=== PATIENT | female | born 1990 | race Caucasian/White ===

== ENCOUNTER 2021-08-25 14:57 | Outpatient (REF) | payer MEDICAID, OTHER, SELFPAY ==
--- NOTE | ~2021-08-25 | XR_ITS ---
EXAMINATION: XR HAND, LEFT CLINICAL INFORMATION: Pain left hand. COMPARISON: None TECHNIQUE: PA, lateral, and oblique views of the left hand. FINDINGS: Bony mineralization is normal. There is no acute or healing fracture, dislocation, or destructive process. The ulnar variance is neutral. There is no focal joint narrowing or erosive changes. XR/XR hand LT min 3V IMPRESSION: Normal left hand.
== END 2021-08-25 14:58 | disposition home or self-care (01) ==
LOC: HO.XRAY 14:57
PROVIDERS: Visit Provider Pediatrics
DX: M79.642 Pain in left hand (principal); M79.641 Pain in right hand
CPT/HCPCS: 73130

== ENCOUNTER 2024-11-12 11:13 | Outpatient (REF) | payer MEDICAID, OTHER, SELFPAY ==
--- OUTSIDE RECORDS SUMMARY | 2024-11-12 12:41 | XMS_ITS | Encounter Summary ---
Author Organization [employer] Address [address] [place] [address] [address] [address] Care Team Providers Care Warehouse Worker 2Nd Shift Name Role Phone Nagi Coughlin MD Primary Care Prov ider Encounter Details Date Type Department Care Team (Latest Contact Info) Description 04/07/2019 Abstract [facility] CONVERSION[facility] Dental, Provider, DDS Social History Tobacco Use Types Packs/Day Years Used Date Smoking Tobacco: Never Assessed Comments Unknown Sex and Gender Information Value Date Recorded Sex Assigned at Female 05/07/2022 10:35 AM EDT Legal Sex Female 10:35 AM EDT Gender Identity Female 05/07/2022 10:35 AM EDT Sexual Orientation Straight 05/07/2022 10 :35 AM EDT documented as of this encounter Plan of Treatment Not on file documented as of this encounter Visit Diagnoses Not on filedocumented in this encounter Care Teams Warehouse Worker 2Nd Shift Relationship Specialty Start Date End Date Nagi Coughlin MD [address] [place] [address] PCP - General Internal Medicine 10/15/19 documented as of this encounter
--- OUTSIDE RECORDS SUMMARY | 2024-11-12 12:41 | XMS_ITS | Encounter Summary ---
Author Organization [employer] Address [address] [place] [address] [address], [place] [address] Care Team Providers Care Shipfitter Helper Name Role Phone Ngai Coughlin MD Primary Care Prov ider Encounter Details Date Type Department Care Team (Latest Contact Info) Description 05/20/2020 Abstract [facility] CONVERSION[facility] Dental, Provider, DDS Social [...] on filedocumented in this encounter Care Teams Shipfitter Helper Relationship Specialty Start Date End Date Nagi Coughlin MD [address] [place] [address] PCP - General Internal Medicine 10/15/19 documented as of this encounter
--- OUTSIDE RECORDS SUMMARY | 2024-11-12 12:41 | XMS_ITS | Encounter Summary ---
Author Organization [employer] [facility] Address [address] [place] [address] [address] [address] Care Team Providers Care Carpet Sewing Machine Operator Name Role Phone Nagi Coughlin MD Primary Care Prov ider Encounter Details Date Type Department Care Team (Latest Contact Info) Description 10/20/2020 Abstract [facility] CONVERSIONS Dental, Provider, DDS Social [...] on filedocumented in this encounter Care Teams Carpet Sewing Machine Operator Relationship Specialty Start Date End Date Nagi Coughlin MD [address] [place] [address] PCP - General Internal Medicine 10/15/19 documented as of this encounter
--- OUTSIDE RECORDS SUMMARY | 2024-11-12 12:41 | XMS_ITS | Clinical Summary ---
Author Organization [employer] Address [address] [facility] [address] [place] [address] Care Team Providers Care Operational Test Mechanic Name Role Phone Nagi Coughlin MD Primary Care Prov ider Allergies No known active allergies Medications ibuprofen 800 MG tablet Take 1 tablet by mouth every 8 (eight) hours. 02/17/2019 Active Active Problems No known active problems Encounters Date Type Department Care Team Description 11/06/2024 Orders Only [facility] [address] [place] [address] Nagi Coughlin MD Encounter for medical examination to establish care (Primary Dx) 11/05/2024 Travel 10/07/2024 Telephone [facility] [address] [place], [place] [id number] Ngai Coughlin MD 10/07/2024 Travel from Last 3 Months Social History Tobacco Use Types Packs/Day Years Used Date Smoking Tobacco: Never Passive Smoke Exposure: Never Smokeless Tobacco: Never Tobacco Cessation:Counseling Given: Not Answered Alcohol Use Standard Drinks/Week Comments Never 0 (1 standard drink = 0.6 oz pur e alcohol) Comments Unknown Sex and Gender Information Value Date Recorded Sex Assigned at Female 05/07/2022 10:35 AM EDT Legal Sex Female 10:35 AM EDT Gender Identity Female 05/07/2022 10:35 AM EDT Sexual Orientation Straight 05/07/2022 10 :35 AM EDT Last Filed Vital Signs Vital Sign Reading Time Taken Comments Blood Pressure 116/72 12/31/2022 8:04 AM EDT Pulse 76 12/31/2022 8:04 AM EDT Temperature - - Respiratory Rate - - Oxygen Saturation - - Inhaled Oxygen Concentration - - Weight 57.6 kg (127 lb) 01/04/2022 12:06 AM EDT Height 157.5 cm (5' 2 ) 01/04/2022 12:06 AM EDT Body Mass Index 23.23 01/04/2022 12:06 AM EDT Plan of Treatment Health Maintenance Due Date Last Done Comments Dental X-Ray: Full Mouth 1988 Depression Screening 1988 HIV Screening 1988 SDOH Screening 1988 Alcohol/Substance Use Screening 2000 Family Planning (PISQ) 2003 Hepatitis C Screening 2006 DTaP/Tdap/Td Vaccines (1 - Tdap) 2007 Hepatitis B Vaccines (1 of 3 - 19+ 3-dose series) 2007 Pap Smear 2009 Cervical Cancer Screening 2018 HPV/Cotest 2018 Dental Oral Exam 07/03/2023 12/31/2022, 01/2022, 05/20/2020, Additional history exists Dental Prophylaxis 07/03/2023 12/31/2022, 09/11/2021 Dental X-Ray: Bitewings 01/02/2024 01/01/20 23, 09/11/2021, 05/20/2020, Additional history exists COVID-19 Vaccine ( - season) 2024 Influenza Vaccine (#1) 2024 05/10/2022 Tobacco Screening 11/05/2025 11/05/2024 Zoster Vaccines (1 of 2) 2038 RSV Patients and Patients Aged 60 years or older (1 - 1-dose 75+ series) 2063 HIB Vaccines Aged Out No longer eligi ble based on patient's age to complete this topic HPV Vaccines Aged Out No longer eligi ble based on patient's age to complete this topic Hepatitis A Vaccines Aged Out No long er eligible based on patient's age to complete this topic IPV Vaccines Aged Out No longer eligi ble based on patient's age to complete this topic Meningococcal Vaccine Aged Out No evens ap eligible based on patient's age to complete this topic Pneumococcal Vaccine: Pediatrics (0 to 5 Years) and At-Risk Patients (6 to 49) Years) Aged Out No longer eligible based on patient's age to complete this topic RSV under 20 months Aged Out No longe r eligible based on patient's age to complete this topic Rotavirus Vaccines Aged Out No longer eligible based on patient's age to complete this topic Procedures Procedure Name Priority Date/Time Associated Diagnosis Comments PERIODIC ORAL EVALUATION - ESTABLISHED PATIENT Routine 12/31/2022 9:00 AM EDT PROPHYLAXIS - ADULT Routine 12/31/2022 8 :00 AM EDT BITEWINGS - 4 RADIOGRAPHIC IMAGES Routine 12/31/2022 8:00 AM EDT from Last 3 Months or Most Recently Relevant to Health Maintenance Insurance [facility] LIMITED HSN FULL DENTAL-[facility] MEDICAID LIMITED ADULT DENTAL - HSN FULL (MEDICAID) Care Teams Operational Test Mechanic Relationship Specialty Start Date End Date Nagi Coughlin MD [address] [place] [address] PCP - General Internal Medicine 10/15/19
--- OUTSIDE RECORDS SUMMARY | 2024-11-12 12:41 | XMS_ITS | Encounter Summary ---
Author Organization [employer] Address [address] [facility] [address] [place] [address] Care Team Providers Care Tactical/Mobile Watch Officer Name Role Phone Nagi Coughlin MD Primary Care Prov ider Encounter Details Date Type Department Care Team (Late st Contact Info) Description 11/06/2024 Orders Only [facility] MED[facility]INE [address] [place] [address] Nagi Coughlin MD [address] [place], [place] [phone] Encounter for medical examination to establish care (Primary Dx) Social History Tobacco Use Types Packs/Day Years Used Date Smoking Tobacco: Never Passive Smoke Exposure: Never Smokeless Tobacco: Never Alcohol Use Standard Drinks/Week Comments Never 0 (1 standard drink = 0.6 oz pur e alcohol) Comments Unknown Sex and Gender Information Value Date Recorded Sex Assigned at Female 05/07/2022 10:35 AM EDT Legal Sex Female 10:35 AM EDT Gender Identity Female 05/07/2022 10:35 AM EDT Sexual Orientation Straight 05/07/2022 10 :35 AM EDT documented as of this encounter Plan of Treatment Scheduled Orders Name Type Priority Associated Diagnoses Orde r Schedule CBC auto differential Lab Routine Encounter for medical examination to establish care Expected: 11/06/2024 (Approximate), Expires: 11/06/2025 Comprehensive Metabolic Panel Lab Routine Encounter for medical examination to establish care Expected: 11/06/2024 (Approximate), Expires: 11/06/2025 Lipid Panel, Standard Lab Routine Encounter for medical examination to establish care Expected: 11/06/2024 (Approximate), Expires: 11/06/2025 TSH W/Reflex to FT4 Lab Routine Encounter for medical examination to establish care Expected: 11/06/2024 (Approximate), Expires: 11/06/2025 Hemoglobin A1c Lab Routine Encounter for medical examination to establish care Expected: 11/06/2024 (Approximate), Expires: 11/06/2025 HIV-1/2 Antigen and Antibodies, Fourth Generation, with Reflexes Lab Routine Encounter for medical examination to establish care Expected: 11/06/2024 (Approximate), Expires: 11/06/2025 Hepatitis C Antibody with Reflex to HCV, RNA, Quantitative, Real-Time PCR Lab Routine Encounter for medical examination to establish care Expected: 11/06/2024, Expires: 11/06/2025 documented as of this encounter Visit Diagnoses Diagnosis Encounter for medical examination to establish care- Primary documented in this encounter Care Teams Tactical/Mobile Watch Officer Relationship Specialty Start Date End Date Nagi Coughlin MD [address] [place] [address] PCP - General Internal Medicine 10/15/19 documented as of this encounter
[2024-11-12 14:10] LABS: MANUAL DIFF FLAG NO
[2024-11-12 14:15] LABS: Basophils Percent Auto 0.2 % (0-2); Eosinophils Absolute Auto 0.1 X10*3/uL (0.0-0.4); Eosinophils Percent Auto 0.9 % (0-4); Hematocrit 33.7 % (37.0-47.0); Hemoglobin 11.5 g/dl (12.0-16.0); Imm Gran Abs Auto 0.02 X10*3/uL (0.00-0.03); Imm Gran Pct Auto 0.4 % (0.0-0.4); Lymphocytes Absolute Auto 1.1 X10*3/uL (1.2-4.9); Lymphocytes Percent Auto 20.4 % (20-40); Mean Corpuscular HGB Conc 34.1 g/dl (31.0-35.0); Mean Corpuscular Volume 90.8 fL (80.0-98.0); Mean Platelet Volume 10.7 fL (9.4-12.3); Monocytes Absolute Auto 0.5 X10*3/uL (0.1-1.2); Monocytes Percent Auto 8.8 % (2-11); NRBC Pct Auto 0.4 /100WBC (0.0-0.2); Neutrophils Absolute Auto 3.8 x10*3/uL (2.0-8.3); Neutrophils Percent Auto 69.3 % (45-73); Platelet Count 187 X10*3/uL (160-400); Red Blood Count 3.71 X10*6/uL (4.20-5.50); Red Cell Distribution Width 12.8 % (11.0-16.0); White Blood Count 5.4 X10*3/uL (4.8-10.8)
[2024-11-12 14:24] LABS: Estimated Average Glucose 114 mg/dL; Hemoglobin A1C 112.0872 umol/L; Hemoglobin A1c % 5.6 % (<6.0); Total Hemoglobin (HGBA1C) 3014.0237 umol/L
[2024-11-12 14:32] LABS: Alanine Aminotransferase 11 U/L (0-31); Albumin Level 4.2 g/dL (3.5-5.0); Alkaline Phosphatase 39 U/L (39-117); Anion Gap 10 (12-20); Aspartate Amino Transferase 22 U/L (5-31); Bilirubin Total 0.4 mg/dL (0.0-1.0); Blood Urea Nitrogen 15 mg/dL (9-16); Calcium 9.4 mg/dL (8.4-10.2); Carbon Dioxide 27 mmol/L (22-29); Chloride 105 mmol/L (96-108); Cholesterol 154 mg/dL (<200); Estimated Glomerular Filt Rate > 60; Glucose Random 88 mg/dL (60-115); HDL Cholesterol 50 mg/dL (>40); LDL Cholesterol Calculated 94 mg/dL (<100); Potassium 4.1 mmol/L (3.3-5.1); Sodium 138 mmol/L (135-145); Total Protein 6.9 g/dL (6.5-8.0); Triglycerides 53 mg/dL (<150)
[2024-11-12 14:48] LABS: TSH reflex Free T4 3.57 uIU/mL (0.32-4.0)
[2024-11-13 07:58] LABS: HIV AB/AG Nonreactive (Nonreactive); HIV Num 1 0.06 S/CO (0.00-0.99); ~HepC Num1 0.08 S/CO (0.00-0.79); ~Hepatitis C Antibody Nonreactive (Nonreactive)
== END 2024-11-12 11:14 | disposition home or self-care (01) ==
LOC: HO.CHCLDS 11:13
PROVIDERS: Visit Provider Internal Medicine
DX: Z00.00 Encounter for general adult medical examination without abnormal findings (principal); Z11.4 Encounter for screening for human immunodeficiency virus [HIV]; Z13.1 Encounter for screening for diabetes mellitus; Z11.59 Encounter for screening for other viral diseases; Z13.220 Encounter for screening for lipoid disorders; Z13.29 Encounter for screening for other suspected endocrine disorder
CPT/HCPCS: 36415; 80053; 80061; 83036; 84443; 85025; 86803; 87389

== ENCOUNTER 2024-12-22 14:12 | Outpatient (REF) | payer MEDICAID, OTHER, SELFPAY ==
--- OUTSIDE RECORDS SUMMARY | 2024-12-22 16:26 | XMS_ITS | Encounter Summary ---
Author Organization [employer] Address [address] [place] [address] [address] [address] Care Team Providers Care Process Safety Engineering Technologist Name Role Phone Nagi Coughlin MD Primary Care Prov ider Encounter Details Date Type Department Care Team (Latest Contact Info) Description 10/20/2020 Abstract [facility] CONVERSIONS Dental, Provider, DDS Social History Tobacco Use Types Packs/Day Years Used Date Smoking Tobacco: Never Assessed Comments Unknown Sex and Gender Information Value Date Recorded Sex Assigned at Female 05/07/2022 10:35 AM EDT Legal Sex Female 10:35 AM EDT Gender Identity Female 05/07/2022 10:35 AM EDT Sexual Orientation Straight 05/07/2022 10 :35 AM EDT documented as of this encounter Plan of Treatment Upcoming Encounters Date Type Department Care Team (Late st Contact Info) Description 02/10/2025 8:45 AM EDT Office Visit [facility] [address] [place] [address] Nagi Coughlin MD [address] [place] [address] documented as of this encounter Visit Diagnoses Not on filedocumented in this encounter Care Teams Process Safety Engineering Technologist Relationship Specialty Start Date End Date Nagi Coughlin MD [address] [place] [address] PCP - General Internal Medicine 10/15/19 documented as of this encounter
[2024-12-28 09:53] LABS: HPV Genotype 16 Negative (Negative); HPV Genotype 18 Negative (Negative); HPV High Risk Negative (Negative)
== END 2024-12-22 14:13 | disposition home or self-care (01) ==
LOC: HO.CHCLNP 14:12
PROVIDERS: Visit Provider Family Medicine
DX: Z12.4 Encounter for screening for malignant neoplasm of cervix (principal)
CPT/HCPCS: 87626; 88175

== ENCOUNTER 2025-02-10 09:09 | Outpatient (REF) | payer MEDICAID, OTHER, SELFPAY ==
--- OUTSIDE RECORDS SUMMARY | 2025-02-10 09:35 | XMS_ITS | Encounter Summary ---
Author Organization [employer] Address [address] [place] [address] Care Team Providers Care Powerhouse Engineer Name Role Phone Nagi Coughlin MD Primary Care Prov ider Encounter Details Date Type Department Care Team (Latest Contact Info) Description 10/20/2020 Abstract [facility] CONVERSIONS Dental, Provider, DDS Social History Tobacco [...] on filedocumented in this encounter Care Teams Powerhouse Engineer Relationship Specialty Start Date End Date Nagi Coughlin MD [address] [place] [address] PCP - General Internal Medicine 10/15/19 documented as of this encounter
[2025-02-10 14:22] LABS: Appearance Urine Clear; Glucose Urine UA Negative (Negative); PH 5.5 (5.0-9.0); Specific Gravity - Urine 1.020 (1.005-1.025); UMIC TRIGGER UACC YES
== END 2025-02-10 09:10 | disposition home or self-care (01) ==
LOC: HO.CHCLDS 09:09
PROVIDERS: PCP Internal Medicine; Visit Provider Internal Medicine
DX: R31.29 Other microscopic hematuria (principal)
CPT/HCPCS: 81001

== ENCOUNTER 2025-02-12 09:56 | Outpatient (REF) | payer MEDICAID, OTHER, SELFPAY ==
--- OUTSIDE RECORDS SUMMARY | 2025-02-12 10:02 | XMS_ITS | Encounter Summary ---
Author Organization [employer] Address [address] [place] [address] Care Team Providers Care Director Of Customer Acquisition Name Role Phone Nagi Coughlin MD Primary [...] on filedocumented in this encounter Care Teams Director Of Customer Acquisition Relationship Specialty Start Date End Date Nagi Coughlin MD [address] [place] [address] PCP - General Internal Medicine 10/15/19 documented as of this encounter
== END 2025-02-12 09:57 | disposition home or self-care (01) ==
LOC: HO.CHCLDS 09:56
PROVIDERS: PCP Internal Medicine; Visit Provider Internal Medicine
DX: R31.29 Other microscopic hematuria (principal)
CPT/HCPCS: 88112

== ENCOUNTER 2025-04-07 16:17 | Outpatient (REF) | payer MEDICAID, OTHER, SELFPAY ==
--- NOTE | ~2025-04-07 | US_ITS ---
EXAMINATION: US RETROPERITONEAL LIMITED (RENAL ONLY) CLINICAL INFORMATION: Microscopic hematuria. COMPARISON: None available. TECHNIQUE: Routine grayscale imaging of kidneys was performed. FINDINGS: RIGHT KIDNEY: 10.5 x 3.8 x 4.0 cm (SAG x AP x TRV). The kidney is normal in size, contour, and echogenicity. Renal cortical thickness is normal. No calculi or focal parenchymal lesions. No hydronephrosis. LEFT KIDNEY: 10.5 x 4.6 x 3.9 cm (SAG x AP x TRV). The kidney is normal in size, contour, and echogenicity. Renal cortical thickness is normal. No calculi or focal parenchymal lesions. No hydronephrosis. US/US renal BI IMPRESSION: Unremarkable renal ultrasound. Electronically signed by: Jasson Joshi MD 04/08/2025 07:03 AM EDT
--- OUTSIDE RECORDS SUMMARY | 2025-04-07 16:40 | XMS_ITS | Clinical Summary ---
Author Organization [employer] Address [address] [facility] [address] [place] [address] Care Team Providers Care Water Systems Engineer Name Role Phone Nagi Coughlin MD Primary Care Prov ider Allergies No known active allergies Medications ibuprofen 800 MG tablet Take 1 tablet by mouth every 8 (eight) hours. 02/17/2019 Active Active Problems Problem Noted Date Diagnosed Date Physical exam 02/10/2025 Assessment & Plan (02/10/2025 12:39 PM EDT): Unremarkable physical examination, no murmurs, no thyroid nodules, will order routine blood work Screening for cervical cancer 12/08/2024 Assessment & Plan (12/22/2024 10:34 AM EDT): 34 y.o. here for cervical cancer screening. Will continue monitoring following ASCCP guidelines. Assessment & Plan (12/08/2024 3:10 PM EDT): Will refer for a pap smear Microscopic hematuria 12/08/2024 Assessment & Plan (02/10/2025 12:38 PM EDT): New labs ordered for guidance of therapy, no episode of gross hematuria Assessment & Plan (12/08/2024 3:12 PM EDT): Will order a new u/a for follow up, she lost follow up with urology Encounters Date Type Department Care Team Description 02/11/2025 Results Follow-Up [facility] [address] [place] [address] Nagi Coughlin MD Urinalysis, Complete, with Reflex to Culture 02/10/2025 8:45 AM EDT Office Visit [facility] [address] [place] [address] Nagi Coughlin MD Microscopic hematuria (Primary Dx); Encounter for immunization; Physical exam 02/10/2025 Travel from Last 3 Months Immunizations Immunization Administration Dates Next Due Tdap 02/10/2025 Family History Medical History Relation Name Comments Hypertension Father Hyperlipidemia Mother Hypertension Mother Hypothyroidism Mother Osteoarthritis Mother Relation Name Status Comments Father Mother Social History Tobacco Use Types Packs/Day Years Used Date Smoking Tobacco: Never Passive Smoke Exposure: Never Smokeless Tobacco: Never Tobacco Cessation:Counseling Given: Not Answered Alcohol Use Standard Drinks/Week Comments Never 0 (1 standard drink = 0.6 oz pur e alcohol) Depression Answer Date Recorded Patient Health Questionnaire-9 Score 2 02/10/2025 Patient Health Questionnaire-9 Score 2 02/10/2025 Last PHQ-9: Questionnaire Data Not on file 0 02/10/2025 Depression Answer Date Recorded Patient Health Questionnaire-2 Score 1 02/10/2025 Comments No Sex and Gender Information Value Date Recorded Sex Assigned at Female 05/07/2022 10:35 AM EDT Legal Sex Female 10:35 AM EDT Gender Identity Female 05/07/2022 10:35 AM EDT Sexual Orientation Straight 05/07/2022 10 :35 AM EDT Last Filed Vital Signs Vital Sign Reading Time Taken Comments Blood Pressure 112/65 02/10/2025 8:42 AM EDT Pulse 97 02/10/2025 8:42 AM EDT Temperature 36.3 C (97.3 F) 02/10/2025 8:42 AM EDT Respiratory Rate 20 02/10/2025 8:42 AM EDT Oxygen Saturation 99% 02/10/2025 8:42 AM EDT Inhaled Oxygen Concentration - - Weight 58.5 kg (129 lb) 02/10/2025 8:42 AM EDT Height 158 cm (5' 2.21 ) 02/10/2025 8:42 AM EDT Body Mass Index 23.44 02/10/2025 8:42 AM EDT Plan of Treatment Health Maintenance Due Date Last Done Comments Dental X-Ray: Full Mouth 1990 SDOH Screening 1990 Family Planning (PISQ) 2003 HPV Vaccines (1 - 3-dose series) 2003 Hepatitis B Vaccines (1 of 3 - 19+ 3-dose series) 2007 Dental Oral Exam 07/03/2023 12/31/2022, 01/2022, 05/20/2020, Additional history exists Dental Prophylaxis 07/03/2023 12/31/2022, 09/11/2021 Dental X-Ray: Bitewings 01/02/2024 01/01/20 23, 09/11/2021, 05/20/2020, Additional history exists COVID-19 Vaccine ( - season) 2025 Influenza Vaccine (#1) 2025 05/10/2022 Tobacco Screening 12/22/2025 12/22/2024 Alcohol/Substance Use Screening 02/10/2026 02/10/2025 Depression Screening 02/10/2026 02/10/2025, 02/11/20 25 Disability Screening 02/10/2026 02/10/2025 Cervical Cancer Screening 12/22/2029 HPV/Cotest 12/22/2029 12/22/2024 Pap Smear 12/22/2029 12/22/2024 DTaP/Tdap/Td Vaccines (2 - Td or Tdap) 02/10/2035 02/10/2025 Zoster Vaccines (1 of 2) 2038 RSV Patients and Patients Aged 60 years or older (1 - 1-dose 75+ series) 2063 HIV Screening Completed 11/12/2024 Hepatitis C Screening Completed 11/12/2024 HIB Vaccines Aged Out No longer eligi ble based on patient's age to complete this topic Hepatitis A Vaccines Aged Out No long er eligible based on patient's age to complete this topic IPV Vaccines Aged Out No longer eligi ble based on patient's age to complete this topic Meningococcal B Vaccine Aged Out No l onger eligible based on patient's age to complete this topic Meningococcal Vaccine Aged Out No evens ap eligible based on patient's age to complete this topic Pneumococcal Vaccine: Pediatrics (0 to 5 Years) and At-Risk Patients (6 to 49) Years Aged Out No longer eligible based on patient's age to complete this topic RSV under 20 months Aged Out No longe r eligible based on patient's age to complete this topic Rotavirus Vaccines Aged Out No longer eligible based on patient's age to complete this topic Procedures Procedure Name Priority Date/Time Associated Diagnosis Comments CYTOPATH-CELL ENHANCED Routine 02/12/2025 10:03 AM EDT Encounter for medical examination to establish care URINALYSIS, COMPLETE, WITH REFLEX TO CULTURE Routine 02/10/2025 9:17 AM EDT Microscopic hematuria HPV DNA, LOW/HIGH RISK Routine 12/22/2024 9:49 AM EDT Screening for cervical cancer PAP SMEAR Routine 12/22/2024 9:49 AM EDT Screening for cervical cancer HEPATITIS C AB W/REFL TO HCV RNA, QN, PCR Routine 11/12/2024 11:14 AM EDT Encounter for medical examination to establish care HIV 1/2 ANTIGEN/ANTIBODY, FOURTH GENERATION W/RFL Routine 11/12/2024 11:14 AM EDT Encounter for medical examination to establish care PERIODIC ORAL EVALUATION - ESTABLISHED PATIENT Routine 12/31/2022 9:00 AM EDT PROPHYLAXIS - ADULT Routine 12/31/2022 8 :00 AM EDT BITEWINGS - 4 RADIOGRAPHIC IMAGES Routine 12/31/2022 8:00 AM EDT from Last 3 Months or Most Recently Relevant to Health Maintenance Results * Cytopath-cell enhanced (02/12/2025 10:03 AM EDT) 02/12/2025 10:0 3 AM EDT 02/15/2025 9:05 AM EDT [facility] - 02/16/2025 2:04 PM EDT ----- ------- Name: Tali Watt Age/Sex: 34/F : 1990 Unit#: [id number] Attend Dr: Nagi Coughlin MD Re02/12/25 Status: [facility] REF Location: [facility] Disch: ----- ------- SPEC : [id number] RECD: 02/15/25 STATUS: JENNA CARDENAS NUM: [id number] ERNIE: 02/12/25-1003 [facility] DR: Nagi Coughlin MD ENTERED: 02/15/25 SP TYPE: Cytology OT : ORDERED: Cyto-enhanced Diagnosis Urine, cytology: Negative for high-grade urothelial carcinoma. COMMENT: Review of the cytology preparation demonstrates a mildly cellular specimen composed of squamous and urothelial cells. Red blood cells are noted. There is no significant atypia seen. Clinical History Microscopic hematuria Material Received Urine Gross Description Received is 25 cc of cloudy yellow fluid from which a ThinPrep slide is prepared. IHC S/NG Disclaimer NOTE: Unless otherwise stated, all tissue is formalin-fixed and paraffin-embedded. Some or all of the immunohistochemical tests reported herein may have been developed and their performance characteristics determined by [facility]. They have not been cleared or approved by the U.S. Food and Drug Administration (FDA). However, the FDA has determined that such clearance or approval is not necessary. This laboratory is certified under the Clinical Laboratory Improvement Amendments of 1988 (CLIA) as qualified to perform high complexity clinical laboratory testing. ----- ------- Signed (signature on file) Mehnaz Carter MD 02/16/25 1404 ----- ------- END OF REPORT Nagi Doan MD LAB CYTOLOGY ORDER JASPREET Final Result [facility] [address] [place] [phone] * (ABNORMAL) Urinalysis, Complete, with Reflex to Culture (02/10/2025 9:17 AM EDT) Color Urine Yellow [facility] Appearance Urine Clear [facility] PH 5.5 5.0 - 9.0 [facility] Glucose Urine UA Negative Negative mg/dL [facility] Urine Blood Large (3+)(A) Negative [facility] Specific Holmes - Urine 1.020 1.005 - 1.025 [facility] Urine Protein 100 (2+)(A) Neg-Trace mg/dL [facility] Urine Ketones Negative Negative mg/dL [facility] Nitrite Urine Negative Negative [facility] Leukocyte Esterase Urine Negative Negative [facility] RBC Urine 11-20(A) 0 - 2 /HPF [facility] Urine WBC 0-5 0 - 5 /HPF [facility] Urine Squamous Epithelial Cell 3-5 0 - 2 /HPF [facility] Urine Bacteria None Seen None Seen [facility] Hyaline Casts, Urine 3-5 0 - 2 /LPF [facility] Urine 02/10/2025 9:17 AM EDT 02/10/2025 2:15 PM EDT Narrative [facility] - 02/10/2025 2:29 PM EDT [id number], Clean Catch us Nagi Doan MD LAB URINE ORDERABL ES Final Result Performing Organization Address [facility]/ZIP Co de Phone Number [facility] [address] [place] [phone] * HPV High Risk with Reflex to Subtypes (12/22/2024 9:49 AM EDT) HPV High Risk Negative Negative [facility] HPV Genotype 16 Negative Negative [facility] HPV Genotype 18 Negative Negative [facility] Comment:HPV testing performe d at [facility] (CLIA#[id number]), [address] [place] [address].Testing for HPV was performed using the [employer] KEDAR 6800system. The presence of HPV in the female genital tract isassociated with a number of diseases, including cervicalcarcinoma. The HPV DNA high risk pool tests for HPV 31, 33,35, 39, 45, 51, 52, 56, 58, 59, 66 and 68. The testing forHPV 16 and 18 genotypes has also been performed. A positiveresult indicates detection of nucleic acid sequences fromone or more subtypes, whereas a negative result indicatessuch sequences were not detected. Pap Vial 12/22/2024 9:49 AM EDT 12/22/2024 2:45 PM EDT us Keiko Shipley MD LAB BLOOD ORDERABLES Final Re sult Performing Organization Address [facility]/ZIP Co de Phone Number [facility] [address] [place] [phone] * Pap Smear (12/22/2024 9:49 AM EDT) Swab 12/22/2024 9:49 AM EDT 12/22/2024 2:45 PM EDT [facility] - 12/25/2024 9:41 AM EDT ----- ------- Name: Garrett YuTali Carpenter Age/Sex: 34/F : 1990 Unit#: [id number] Attend Dr: Keiko Shipley MD Re12/22/24 Status: DEP REF Location: [facility] Disch: ----- ------- SPEC : [id number] RECD: 12/22/241445 STATUS: JENNA CARDENAS NUM: [id number] ERNIE: 12/22/24-49 [facility] DR: Keiko Shipley MD ENTERED: 12/22/24-150 SP TYPE: Pap [facility] DR: ORDERED: Pap Smear Interpretation Satisfactory for evaluation. Negative for intraepithelial lesion or malignancy. HPV High Risk: Negative HPV Genotyping 16: Negative HPV Genotyping 18: Negative Clinical Information LMP: Unknown date Previous PAP test: Unknown date/findings Other history: [employer] Material Received ThinPrep-Cervical PAP Disclaimer As of April 29, 2024, the technical services to include automated prescreening performed by the ThinPrep Imaging System, PAP screening and HPV testing will be performed at [facility] (CLIA #[id number]), [address] [place] [id number]. Testing for HPV was performed using the [employer] KEDAR 6800 system. The presence of HPV in the female genital tract is associated with a number of diseases, including cervical carcinoma. The HPV DNA high risk pool tests for HPV 31, 33, 35, 39, 45, 51, 52, 56, 58, 59, 66 and 68. The testing for HPV 16 and 18 genotypes has also been performed. A positive result indicates detection of nucleic acid sequences from one or more subtypes, whereas a negative result indicates such sequences were not detected. All professional services are performed by [facility] ([address] [place] [address], [place] [id number]; ; CLIA #[id number]). The PAP Test is a screening procedure with the inherent possibility of both false negative and false positive results. Results should be interpreted in the context of historic and current clinical findings. Reliability of the PAP Test is enhanced by performing the test on a regular repetitive basis. ----- ------- Signed (signature on file) DOLLY Quan (ASC) 12/25/24 0941 ----- ------- END OF REPORT us Keiko Shipley MD LAB CYTOLOGY ORDERABLES Final Result Performing Organization Address City/State/[facility] Co de Phone Number [facility] [address] [place] [phone] * Hepatitis C Antibody with Reflex to HCV, RNA, Quantitative, Real-Time PCR (11/12/2024 11:14 AM EDT) Hepatitis C Antibody Nonreactive Nonreactive [facility] Comment:Antibodies to HCV no t detected; does not exclude early acuteHCV infection. Blood Venous blood specimen / Unknown 11/12/2024 11:14 AM EDT 11/12/2024 2:07 PM EDT Nagi Doan MD LAB BLOOD ORDERABL ES Final Result Performing Organization Address [facility] de Phone Number [facility] [address] [place] [phone] * HIV-1/2 Antigen and Antibodies, Fourth Generation, with Reflexes (11/12/2024 11:14 AM EDT) HIV AB/AG Nonreactive Nonreactive [facility] Comment:HIV-1 p24 Ag and/or HIV-1/HIV-2 Ab not detected.A test result that is nonreactive does not exclude thepossibility of exposure to or infection with HIV-1 and/orHIV-2. Nonreactive results in this assay for individualswith prior exposure to HIV-1 and/or HIV-2 may be due toantigen and antibody levels that are below the limit ofdetection of this assay.The [employer] HIV Ag/Ab Combo assay result andsupplemental assay results should be interpreted inconjunction with the patient's clinical presentation,history and other laboratory results. If the results areinconsistent with clinical evidence, additional testing issuggested to confirm the result. Blood Venous blood specimen / Unknown 11/12/2024 11:14 AM EDT 11/12/2024 2:07 PM EDT Nagi Doan MD LAB BLOOD ORDERABL ES Final Result [facility] [address] [place] [phone] from Last 3 Months or Most Recently Relevant to Health Maintenance [place] FULL (MEDICAID) * Guarantor: Tali Rutherford Account Type Relation to Patient Date of Phone Billing Address Personal/Family Self [address] [facility] BOBBY Talbot13 Care Teams Water Systems Engineer Relationship Specialty Start Date End Date Nagi Coughlin MD [address] [place] [address] BOBBY Foley PCP - General Internal Medicine 10/15/19
--- OUTSIDE RECORDS SUMMARY | 2025-04-07 16:40 | XMS_ITS | Encounter Summary ---
Author Organization [employer] [facility] Address [address] [place] [address] [address] [place] [address] Care Team Providers Care Cement Finisher Helper Name Role Phone Nagi Coughlin MD Primary [...] on filedocumented in this encounter Care Teams Cement Finisher Helper Relationship Specialty Start Date End Date Nagi Coughlin MD [address] [place] [address] PCP - General Internal Medicine 10/15/19 documented as of this encounter
--- OUTSIDE RECORDS SUMMARY | 2025-04-07 16:40 | XMS_ITS | Encounter Summary ---
Author Organization [employer] [facility] Address [address] [place] [address] [address] [place] [address] Care Team Providers Care Board Mill Supervisor Name Role Phone Nagi Coughlin MD Primary [...] on filedocumented in this encounter Care Teams Board Mill Supervisor Relationship Specialty Start Date End Date Nagi Coughlin MD [address] [place] [address] PCP - General Internal Medicine 10/15/19 documented as of this encounter
--- OUTSIDE RECORDS SUMMARY | 2025-04-07 16:40 | XMS_ITS | Encounter Summary ---
Author Organization [employer] [facility] Address [address] [place] [address] [address] [place] [address] Care Team Providers Care Package Maker Name Role Phone Nagi Coughlin MD Primary [...] on filedocumented in this encounter Care Teams Package Maker Relationship Specialty Start Date End Date Nagi Coughlin MD [address] [place] [address] PCP - General Internal Medicine 10/15/19 documented as of this encounter
--- OUTSIDE RECORDS SUMMARY | 2025-04-07 16:40 | XMS_ITS | Encounter Summary ---
Author Organization [employer] Address [address] [address] [address] [place] [address] Care Team Providers Care Credit Resolution Representative Name Role Phone Nagi Coughlin MD Primary Care Prov ider Encounter Details Date Type Department Care Team (Late st Contact Info) Description 11/06/2024 Orders Only [facility] [address] [place] [address] Nagi Coughlin MD [address], [place] [phone] Encounter for medical examination to establish care [...] on file documented as of this encounter Procedures Procedure Name Priority Date/Time Associated Diagnosis Comments CYTOPATH-CELL ENHANCED Routine 10:03 AM EDT Encounter for medical examination to establish care TSH W/REFLEX TO FT4 Routine 11/12/2024 1 1:14 AM EDT Encounter for medical examination to establish care CBC WITH AUTO DIFFERENTIAL Routine 11/12/2024 11:14 AM EDT Encounter for medical examination to establish care HEPATITIS C AB W/REFL TO HCV RNA, QN, PCR Routine 11/12/2024 11:14 AM EDT Encounter for medical examination to establish care HIV 1/2 ANTIGEN/ANTIBODY, FOURTH GENERATION W/RFL Routine 11/12/2024 11:14 AM EDT Encounter for medical examination to establish care HEMOGLOBIN A1C Routine 11/12/2024 11:14 AM EDT Encounter for medical examination to establish care LIPID PANEL, STANDARD Routine 11/12/2024 11:14 AM EDT Encounter for medical examination to establish care COMPREHENSIVE METABOLIC PANEL Routine 11/12/2024 11:14 AM EDT Encounter for medical examination to establish care documented in this encounter Results * Cytopath-cell enhanced (02/12/2025 10:03 AM EDT) 02/12/2025 10:0 3 AM EDT 02/15/2025 9:05 AM EDT [facility] - 02/16/2025 2:04 PM EDT ----- ------- Name: Tali Watt Age/Sex: 34/F : 1990 Unit#: [id number] Attend Dr: Nagi Coughlin MD Re02/12/25 Status: DEP REF Location: [facility] Disch: ----- ------- SPEC : [id number] RECD: 02/15/25 STATUS: JENNA CARDENAS NUM: [id number] ERNIE: 02/12/[address] [facility] [address]: Nagi Coughlin MD ENTERED: 02/15/25 SP TYPE: Cytology OT DR: ORDERED: Cyto-enhanced Diagnosis Urine, cytology: Negative for [...] developed and their performance characteristics determined by [facility]. They have not been cleared [...] MD LAB CYTOLOGY ORDER JASPREET Final Result Performing Organization Address City/[facility]/ZIP Co de Phone Number [facility] [address] [place] [address] [phone] * Hepatitis C Antibody with Reflex to HCV, RNA, Quantitative, Real-Time PCR (11/12/2024 11:14 AM EDT) Hepatitis C Antibody Nonreactive Nonreactive [facility] Comment:Antibodies to HCV no t detected; does not exclude early acuteHCV infection. Blood Venous blood specimen / Unknown 11/12/2024 11:14 AM EDT 11/12/2024 2:07 PM EDT Nagi Doan MD LAB BLOOD ORDERABL ES Final Result Performing Organization Address [facility]/ZIP Co de Phone Number [facility] [address] [place] [phone] * HIV-1/2 Antigen and Antibodies, Fourth Generation, with Reflexes (11/12/2024 11:14 AM EDT) HIV AB/AG Nonreactive Nonreactive [facility] Comment:HIV-1 p24 Ag and/or HIV-1/HIV-2 Ab not detected.A test result that is nonreactive does not exclude thepossibility of exposure to or infection with HIV-1 and/orHIV-2. Nonreactive results in this assay for individualswith prior exposure to HIV-1 and/or HIV-2 may be due toantigen and antibody levels that are below the limit ofdetection of this assay.The [employer] HIV Ag/Ab Combo assay result andsupplemental assay results should be interpreted inconjunction with the patient's clinical presentation,history and other laboratory results. If the results areinconsistent with clinical evidence, additional testing issuggested to confirm the result. Blood Venous blood specimen / Unknown 11/12/2024 11:14 AM EDT 11/12/2024 2:07 PM EDT Nagi Doan MD LAB BLOOD ORDERABL ES Final Result Performing Organization Address [facility] Co de Phone Number [facility] [address] [place] [address] [phone] * Hemoglobin A1c (11/12/2024 11:14 AM EDT) Hemoglobin A1c 5.6 <6.0 % [facility] Comment:Hemoglobin A1C Refer ence Range Adults: 4.8 - 6.0 % Non diabetic: < 6.0 % Goal: < 7.0 %Additional Action Suggested: > 8.0 %Note: Hemoglobin A1c results are invalid for patients with abnormal amounts of HbF. Blood transfusions may impact the HbA1c concentration in the patient sample. Estimated Average Glucose 114 mg/dL [facility] Comment:eAG = Estimated ave rage glucose which is %A1C expressed asaverage glucose, using the formula of the [id number] Glucose study (ADAG), Diabetes Care, Vol.31,#8,Feb. 2007 Blood Venous blood specimen / Unknown 11/12/2024 11:14 AM EDT 11/12/2024 2:07 PM EDT Nagi Doan MD LAB BLOOD ORDERABL ES Final Result Performing Organization Address [facility] Co de Phone Number [facility] [address] [place] [address] [phone] * TSH W/Reflex to FT4 (11/12/2024 11:14 AM EDT) TSH reflex Free T4 3.57 0.32 - 4.0 uIU/mL [facility] Blood Venous blood specimen / Unknown 11/12/2024 11:14 AM EDT 11/12/2024 2:07 PM EDT Nagi Doan MD LAB BLOOD ORDERABL ES Final Result Performing Organization Address [facility] Co de Phone Number [facility] [address] [place] [address] [phone] * Lipid Panel, Standard (11/12/2024 11:14 AM EDT) Triglycerides 53 <150 mg/dL [facility] Comment:Desirable Triglyceri de: less than 150 mg/dLBorderline High Triglyceride 150-199 mg/dLHigh Triglyceride: 200-499 mg/dLVery High Triglyceride: greater than or equal to 5OO mg/dL Cholesterol 154 <200 mg/dL [facility] Comment:Desirable Cholestero l: less than 200 mg/dLBorderline High Cholesterol: 200-239 mg/dLHigh Cholesterol: greater than 239 mg/dL LDL Cholesterol Calculated 94 <100 mg/dL [facility] Comment:Desirable LDL: less than 100 mg/dLNear Optimal/Above Optimal LDL: 110- 129 mg/dLBorderline High LDL: 130-159 mg/dLHigh LDL: 160-189 mg/dLVery High LDL: greater than or equal to 190 mg/dL HDL Cholesterol 50 >40 mg/dL [facility] Comment:Desirable HDL: great er than 40 mg/dL Note: This HDL assay may give artificially low results in patients with liver disease. Blood Venous blood specimen / Unknown 11/12/2024 11:14 AM EDT 11/12/2024 2:07 PM EDT us Nagi Doan MD LAB BLOOD ORDERABL ES Final Result Performing Organization Address [facility] Co de Phone Number [facility] [address] [place] [address] [phone] * (ABNORMAL) Comprehensive Metabolic Panel (11/12/2024 11:14 AM EDT) Sodium 138 135 - 145 mmol/L [facility] Potassium 4.1 3.3 - 5.1 mmol/L [facility] Chloride 105 96 - 108 mmol/L [facility] Carbon Dioxide 27 22 - 29 mmol/L [facility] Anion Gap 10(L) 12 - 20 [facility] Urea Nitrogen (BUN) 15 9 - 16 mg/dL [facility] Creatinine, Serum 0.64 0.5 - 1.4 mg/dL [facility] Estimated Glomerular Filt Rate >60 [facility] Comment:Chronic Kidney Disea se: Estimated GFR < 60 mL/min/1.73t2Wxdkon Kidney Disease: Estimated GFR < 15 mL/min/1.73m2 Glucose 88 60 - 115 mg/dL [facility] Calcium 9.4 8.4 - 10.2 mg/dL [facility] Bilirubin, Total 0.4 0.0 - 1.0 mg/dL [facility] Aspartate Amino Transferase 22 5 - 31 U/L [facility] Alanine Aminotransferase 11 0 - 31 U/L [facility] Total Protein 6.9 6.5 - 8.0 g/dL [facility] Albumin Level 4.2 3.5 - 5.0 g/dL [facility] Alkaline Phosphatase 39 39 - 117 U/L [facility] Blood Venous blood specimen / Unknown 11/12/2024 11:14 AM EDT 11/12/2024 2:07 PM EDT us Nagi Doan MD LAB BLOOD ORDERABL ES Final Result [facility] [address] [place] [phone] * (ABNORMAL) CBC auto differential (11/12/2024 11:14 AM EDT) White Blood Count 5.4 4.8 - 10.8 X10*3/uL [facility] Red Blood Count 3.71(L) 4.20 - 5.50 X10*6/uL [facility] Hemoglobin 11.5(L) 12.0 - 16.0 g/dl [facility] Hematocrit 33.7(L) 37.0 - 47.0 % [facility] Mean Corpuscular Volume 90.8 80.0 - 98.0 fL [facility] Mean Corpuscular Hemoglobin 31.0 27.0 - 33.0 pg [facility] Mean Corpuscular HGB Conc 34.1 31.0 - 35.0 g/dl [facility] Red Cell Distribution Width 12.8 11.0 - 16.0 % [facility] Platelet Count 187 160 - 400 X10*3/uL [facility] Mean Platelet Volume 10.7 9.4 - 12.3 fL [facility] Neutrophils Percent Auto 69.3 45 - 73 % [facility] Imm Gran Pct Auto 0.4 0.0 - 0.4 % [facility] Lymphocytes Percent Auto 20.4 20 - 40 % [facility] Monocytes Percent Auto 8.8 2 - 11 % [facility] Eosinophils Percent Auto 0.9 0 - 4 % [facility] Basophils Percent Auto 0.2 0 - 2 % [facility] NRBC Pct Auto 0.4(H) 0.0 - 0.2 /100WBC [facility] Neutrophils Absolute Auto 3.8 2.0 - 8.3 x10*3/uL [facility] Imm Gran Abs Auto 0.02 0.00 - 0.03 X10*3/uL [facility] Lymphocytes Absolute Auto 1.1(L) 1.2 - 4.9 X10*3/uL [facility] Monocytes Absolute Auto 0.5 0.1 - 1.2 X10*3/uL [facility] Eosinophils Absolute Auto 0.1 0.0 - 0.4 X10*3/uL [facility] Basophils Absolute Auto 0.0 0.0 - 0.2 X10*3/uL [facility] NRBC Abs Auto 0.020(H) 0.0 - 0.012 X10*3/uL [facility] Blood Venous blood specimen / Unknown 11/12/2024 11:14 AM EDT 11/12/2024 2:07 PM EDT us Nagi Doan MD LAB BLOOD ORDERABL ES Final Result [facility] [address] [place] [address] [phone] documented in this encounter Visit Diagnoses Diagnosis Encounter for medical examination to establish care- Primary documented in this encounter Care Teams Credit Resolution Representative Relationship Specialty Start Date End Date Nagi Coughlin MD [address] [place] [phone] PCP - General Internal Medicine 10/15/19 documented as of this encounter
== END 2025-04-07 16:18 | disposition home or self-care (01) ==
LOC: HO.US 16:17
PROVIDERS: PCP Internal Medicine; Visit Provider Internal Medicine
DX: R31.29 Other microscopic hematuria (principal)
CPT/HCPCS: 76775

== ENCOUNTER → 2025-04-07 16:19 | Outpatient (BNV) | payer MEDICAID, SELFPAY | PROVIDERS: PCP Internal Medicine; Visit Provider Radiology Diagnostic Radiology | DX: R31.29 Other microscopic hematuria (principal) | CPT/HCPCS: 76775 ==